=== PATIENT | female | born 1985 | race Caucasian/White ===

== ENCOUNTER 2018-07-30 11:59 | Inpatient (IN) | payer MEDICAID, OTHER ==
[2018-07-30] MEDS ORDERED: Penicillin G Potassium IV* 5,000,000 UNITS in NS 0.9% 100 ML* 100 ML IVPB ONE (13:33)
[2018-07-30] MEDS ORDERED: Dinoprostone* 10 MG VAG.SUPP VAGINAL ONE (13:33)
--- NOTE | 2018-07-30 15:09 | HP ---
General Information - Reason for Visit LABOR INDUCTION 39 2/7 WEEKS - General Information Maternal Age: 32 Grav: 3 Para: 2 SAB: 0 IEA: 0 Estimated Due Date: 08/04/18 Determined By: LMP Maternal Blood Type and Rh: A Positive - Results this Serology/RPR Result: Non-Reactive Rubella Result: Immune HBsAg Result: Negative HIV Result: Negative GBS Culture Result: Positive Past Medical History Delivery History: See Records Pertinent Past Medical History: See Records Pertinent Past Surgical History: See Records Pertinent Family History: See Records - Antepartal Records Antepartal Records: Reviewed, Complicated by: - + ROD Review of Systems Constitutional: Comfortable CV Complaint: No Respiratory: Shortness of Breath: No Gastrointestinal: No Nausea/Vomiting, Normal Bowel Movement Genitourinary: No Dysuria, No Bleeding, No Leaking Fluid Musculoskeletal: No Complaint Neurological: No Headache Movement: Normal Exam Allergies/Adverse Reactions: Allergies No Known Allergies Allergy (Verified 07/30/18 12:32) - Measurements Height: 5 ft 4 in Weight: 248 lb Weight in lbs: [id number] Body Mass Index (BMI): 42.5 Pre- Weight: 230 lb Weight Gained This : 18 lbs and 0 ozs Targeted Exam Findings Cervical Exam: Fingertip Effacement: Thick Station: High Presenting Part: Vertex Membrane Status: Intact EFM Findings - External Monitor Findings Baseline Heart Rate: 150 External Monitor Findings: Accelerations Present, No Pattern of Variable or Late Decelerations, Variability Moderate, Baseline Stable Contractions: None Assessment/Plan - Assessment Labor induction with + ROD - Obstetrical Risk Factors Obstetrical Risk Factors: GBS Positive - Plan Plan: Induction - will begin cervidil induction/placed at 2:30 PM
[2018-07-30 16:08] LABS: ABS Basophils 0 10^3/ul (0-0.2); ABS Eosinophils 0.1 10^3/ul (0-0.6); ABS Monocytes 0.7 10^3/ul (0-0.8); ABS Neutrophils 7.1 10^3/ul (1.5-7.7); ABS Nucleated RBC 0 10^3/ul; Eosinophil % 1.1 % (0-6); Hematocrit 33 % (35-47); Hemoglobin 11.4 g/dl (12.0-16.0); Lymphocyte % 20.5 % (25-47); Mean Corpuscular HGB Conc 34 g/dl (31-36); Mean Corpuscular Hemoglobin 29 pg (27-31); Mean Corpuscular Volume 84 fL (80-97); Mean Platelet Volume 7.1 um3 (7.4-10.4); Nucleated Red Blood Cells % 0.1; Platelet Count 206 10^3/ul (150-450); Red Blood Count 3.96 10^6/ul (4.00-5.40); Red Cell Distribution Width 15 % (10.5-15); White Blood Count 9.9 10^3/ul (3.5-10.8)
[2018-07-31] MEDS ORDERED: Penicillin G Potassium IV* 2,500,000 UNITS in NS 0.9% 100 ML* 100 ML IVPB SCH (01:00)
[2018-07-31] MEDS ORDERED: Oxytocin in LR* 20 UNITS/1,000 ML BAG IVPB ONE (04:26)
[2018-07-31] MEDS ORDERED: Glycerin ADULT SUPP PR PRN (04:52)
[2018-07-31] MEDS ORDERED: Dibucaine 1% 28.35 GM TUBE PR PRN (04:52)
[2018-07-31] MEDS ORDERED: Tetan/Diph/Pertus SYR(Tdap)* 0.5 ML SYR(BOOSTRIX) use SYR IM ONE (04:52)
[2018-07-31] MEDS ORDERED: Acetaminophen TAB* 325 MG PO PRN (04:52)
[2018-07-31] MEDS ORDERED: Misoprostol TAB* 200 MCG PR ONE (04:52)
[2018-07-31] MEDS ORDERED: Methylergonovine INJ* 0.2 MG/ML 1ML AMP IM ONE (04:52)
[2018-07-31] MEDS ORDERED: Witch Hazel PAD* JAR TOPICAL PRN (04:52)
[2018-07-31] MEDS ORDERED: Oxytocin in LR* 20 UNITS/1,000 ML BAG IVPB SCH (05:00)
--- NOTE | 2018-07-31 05:03 | PROCNOTE ---
[facility] OB: Delivery Note - Delivery A Date of : 07/31/18 [place] Sex: Female Score 1 Minute: 8 Score 5 Minutes: 9 Gestational Age in Weeks and Days at Delivery: 39 Weeks and 3 Days Delivery Method: Spontaneous Vaginal Labor: Induced Amniotic Fluid: Clear Estimated Blood Loss: 700 Anesthesia/Analgesia: None Delivered By: Winnie Seth - Nursery Level of Nursery: Regular/Bedside - Perineum Perineal Injury: Perineal Laceration Perineal Injury Comment: grade II Perineal Repair: By Delivering Practioner - Events Delivery Events of Note: Pitocin Only After Delivery, Post- Bleeding - Meds Given - mehtergine 0.2 mg IM X 1/ cytotec 800 mcg per rectum X 1 given - Additional Delivery Notes Additional Delivery Notes: repair of laceraton with 20 cc 1% lidocaine/2.0 vicryl X 1.
[2018-07-31] MEDS: Ibuprofen TAB* 600 MG PO PRN ×2 (06:23→18:39)
[2018-07-31] MEDS ORDERED: Ammonia Inhalant* 1 EA AMP ONE (06:46)
[2018-07-31] MEDS ORDERED: Simethicone TAB* 80 MG TAB.CHEW PO SCH (08:30)
[2018-07-31] MEDS: Docusate CAP* 100 MG PO SCH ×3 (09:59→20:58)
[2018-07-31] MEDS ORDERED: Tranexamic Acid 1,000 MG/10 ML SDV IV ONE (16:26)
[2018-08-01] MEDS: Ibuprofen TAB* 600 MG PO PRN ×4 (00:19→21:27)
[2018-08-01 07:08] LABS: ABS Basophils 0 10^3/ul (0-0.2); ABS Eosinophils 0.2 10^3/ul (0-0.6); ABS Monocytes 0.6 10^3/ul (0-0.8); ABS Neutrophils 6.7 10^3/ul (1.5-7.7); ABS Nucleated RBC 0 10^3/ul; Hematocrit 25 % (35-47); Hemoglobin 8.6 g/dl (12.0-16.0); Lymphocyte % 28.2 % (25-47); Mean Corpuscular HGB Conc 35 g/dl (31-36); Mean Corpuscular Hemoglobin 29 pg (27-31); Mean Corpuscular Volume 83 fL (80-97); Nucleated Red Blood Cells % 0; Platelet Count 167 10^3/ul (150-450); Red Blood Count 2.96 10^6/ul (4.00-5.40); Red Cell Distribution Width 15 % (10.5-15); White Blood Count 10.5 10^3/ul (3.5-10.8)
[2018-08-01] MEDS: Docusate CAP* 100 MG PO SCH ×3 (08:19→21:27)
[2018-08-01] MEDS: Ferrous Gluconate TAB* 324 MG TAB PO SCH ×2 (08:19→21:27)
[2018-08-02 08:00] VITALS: BP 110/65
[2018-08-02] MEDS: Docusate CAP* 100 MG PO SCH (08:05)
[2018-08-02] MEDS: Ferrous Gluconate TAB* 324 MG TAB PO SCH (08:05)
[2018-08-02] MEDS: Ibuprofen TAB* 600 MG PO PRN (08:05)
== END 2018-08-02 10:58 | disposition home or self-care (01) | DRG 560 ==
LOC: MCHOBOUT 11:59 → MCHOB 13:35
PROVIDERS: ADMIT Obstetrics & Gynecology; ATTEND Obstetrics & Gynecology
PROC: 10E0XZZ Delivery of Products of Conception, External Approach (ICD-10-PCS; principal; 2018-07-31)
PROC: 3E033VJ Introduction of Other Hormone into Peripheral Vein, Percutaneous Approach (ICD-10-PCS; 2018-07-31)
PROC: 0KQM0ZZ Repair Perineum Muscle, Open Approach (ICD-10-PCS; 2018-07-31)
PROC: 10907ZC Drainage of Amniotic Fluid, Therapeutic from Products of Conception, Via Natural or Artificial Opening (ICD-10-PCS; 2018-07-31)
DX: O99.824 Streptococcus B carrier state complicating childbirth (principal); O70.1 Second degree perineal laceration during delivery; Z3A.39 39 weeks gestation of pregnancy; Z37.0 Single live birth
CPT/HCPCS: 36415; 85025; 86850; 86900; 86901; 90686; 90715; A9270-GY; J2210; J2540

== ENCOUNTER 2019-07-04 01:08 | Emergency (ER) | payer OTHER ==
[2019-07-04] MEDS ORDERED: predniSONE TAB* 20 MG PO ONE (02:04)
--- NOTE | 2019-07-04 02:12 | ED ---
Allergic Reaction/Systemic - HPI Summary HPI Summary: The patient is a 33 y/o F presenting to [facility] with a chief complaint of gradual onset hives and facial swelling starting at 2030 last night. She reports that she has episodes of swelling near the eyes and hive breakouts which started after her first without dx except for chronic hives and Lupus through a job press operator in [place]. Her symptoms today started with minimal swelling in the eyes to which she took Benadryl and Zyrtec, but they then developed into hives behind her ears and on the extremities as well as a pulsing sensation in the throat, which has improved since onset. She additionally c/o chest tightness. Her current symptoms are rated 0/10 in severity. She has not had a flare-up with these symptoms before, but the last episodes she had was after her second a year ago, and she has not gone to the hospital before. She notes that Prednisone has previously alleviated her symptoms. She had switched rheumatologists during a move to [place] but has not yet found a new job press operator since returning to [place], although she has an appointment this week to find a new provider. PMHx: Lupus, chronic hives. Former smoker, no EtOH, no substance use. Medications and allergies reviewed. - History of Current Complaint Chief Complaint: EDAllergicReaction Time Seen by Provider: 07/04/19 01:53 Hx Obtained From: Patient Onset/Duration: Gradual Onset, Started hours ago - at 2130 last night, Still Present Timing: Lasting Hours Severity Initially: Mild Severity Currently: Moderate Pain Intensity: 0 Pain Scale Used: 0-10 Numeric Character: Swelling - at eyes, Hives - behind ears, on extremities Aggravating Factor(s): Nothing Alleviating Factor(s): Nothing - Prednisone has helped in the past Associated Signs And Symptoms: Positive: Other: - Positive: chest tightness, sinus pressure, pulsing sensation in the throat - Allergies/Home Medications Allergies/Adverse Reactions: Allergies Allergy/AdvReac Type Severity Reaction Status Date / Time No Known Allergies Allergy Verified 07/04/19 01:12 PMH/Surg Hx/FS Hx/Imm Hx Endocrine/Hematology History: Reports: Hx Systemic Lupus Erythematosus, Other Endocrine/Hematological Disorders - chronic hives of unknown origin Denies: Hx Diabetes Cardiovascular History: Denies: Hx Hypertension - Surgical History Surgical History: None Surgery Procedure, Year, and Place: none Infectious Disease History: No Infectious Disease History: Denies: Traveled Outside the [place] in Last 30 Days - Family History Known Family History: Negative: Diabetes - Social History Alcohol Use: None Hx Substance Use: No Substance Use Type: Reports: None Hx Tobacco Use: No Smoking Status (MU): Former Smoker Type: Cigarettes Have You Smoked in the Last Year: No Review of Systems Positive: Other - pulsing sensation in the throat, sinus pressure Positive: Other - chest tightness Positive: Other - hives on the extremities and behind ears All Other Systems Reviewed And Are Negative: Yes Physical Exam - Summary Physical Exam Summary: Appearance: Well-appearing, Well-nourished, lying in bed comfortably Skin: Warm, dry, no obvious rash Eyes: sclera anicteric, no conjunctival pallor, no urticarial conjunctivitis, some swelling on left eye ENT: scattered swelling in the upper and lower lips, no lingual edema, mucous membranes moist, pharynx appears normal Neck: Supple, nontender Respiratory: Clear to auscultation, no signs of respiratory distress Cardiovascular: Normal S1, S2. No murmurs. Normal distal pulses in tibial and radial bilaterally. Abdomen: Soft, nontender, normal active bowel sounds present Musculoskeletal: Normal, Strength/ROM Intact Neurological: A&Ox3, awake and alert, mentation is normal, speech is fluent and appropriate Psychiatric: affect is normal, does not appear anxious or depressed Triage Information Reviewed: Yes Vital Signs On Initial Exam: Initial Vitals Temp Pulse Resp BP Pulse Ox 97.2 F 86 15 135/100 100 07/04/19 01:09 07/04/19 01:09 07/04/19 01:09 07/04/19 01:09 07/04/19 01:09 Vital Signs Reviewed: Yes Diagnostics - Vital Signs Vital Signs Temp Pulse Resp BP Pulse Ox 07/04/19 01:09 97.2 F 86 15 135/100 100 - Laboratory Lab Statement: Any lab studies that have been ordered have been reviewed, and results considered in the medical decision making process. Allergic Reaction Course/Dx - Course Course Of Treatment: Patient is a 33 y/o F with cc of episode of chronic hives worse than previous starting with swelling in the eyes, sinus pressure, pulsing sensation in the throat, and chest tightness. Hives improved after Benadryl and Zyrtec administration. Appointment with new job press operator this week for Lupus consultation. Upon physical exam, the patient exhibits some swelling on the left eye and scattered swelling on the upper and lower lips without urticarial conjunctivitis or lingual edema. Since the patient has previously been treated with Prednisone with improvement in her symptoms, she will be prescribed the steroid now for a few days. She will follow up with her job press operator as scheduled. She understands and agrees with this plan. - Diagnoses Provider Diagnoses: Urticaria Discharge ED - Sign-Out/Discharge Documenting (check all that apply): Patient Departure - Patient will be discharged home. Patient Received Moderate/Deep Sedation with Procedure: No - Discharge Plan Condition: Fair Disposition: HOME Prescriptions: predniSONE TAB* [Deltasone 20 MG TAB*] 40 mg PO DAILY 3 Days #6 tab Patient Education Materials: Urticaria (ED) Referrals: [facility] [Outside] - 3 Days (if needed) Additional Instructions: Follow up with your job press operator as scheduled. Return to the emergency department for any new or worsening symptoms. - Billing Disposition and Condition Condition: FAIR Disposition: Home - Attestation Statements Document Initiated by Eulalia: Yes Documenting Scribe: Chelo Hamilton Provider For Whom Eulalia is Documenting (Include Credential): Dr. Benigno Pollack MD Scribe Attestation: Chelo Wright scribed for Dr. Benigno Pollack MD on 07/04/19 at 0545. Scribe Documentation Reviewed: Yes Provider Attestation: The documentation as recorded by the Chelo guzman accurately reflects the service I personally performed and the decisions made by me, Dr. Benigno Pollack MD Status of Scribe Document: Viewed
[2019-07-04 02:19] VITALS: BP 122/78
== END 2019-07-04 02:17 | disposition home or self-care (01) ==
LOC: ED 01:08
DX: L50.9 Urticaria, unspecified (principal); M32.9 Systemic lupus erythematosus, unspecified; Z87.891 Personal history of nicotine dependence; Z79.82 Long term (current) use of aspirin; Z79.899 Other long term (current) drug therapy
CPT/HCPCS: 99282; J7512